=== PATIENT | female | born 1940 | race Caucasian/White ===

== ENCOUNTER 2024-12-27 14:08 | Outpatient (AMB) | payer MEDICARE, MEDICAID, SELFPAY ==
--- NOTE | 2024-12-27 14:26 | MHC.PC.OV ---
Vital Signs 12/27/24 14:33 Height 4 ft 10.66 in Weight 123 lb BMI 25.1 BP 174/74 H Respiration 14 Pulse 68 Pulse Source Pulse Oximeter Temp 97.8 F Temp Source Temporal Artery Scan Pulse Oximetry (%) 97 Oxygen Delivery Method Room Air Intake Visit Reasons: Est care A1c Mailroom Personnel Required: No Accompanied by: [facility] Allergies sulfamethoxazole (From Bactrim) Allergy (Mild, Verified 12/27/24 15:08) Vomiting trimethoprim (From Bactrim) Allergy (Mild, Verified 12/27/24 15:08) Vomiting Medication List - Last Reconciled 12/27/24 by Fredy Borjas MD atorvastatin 80 mg PO DAILY glipizide 10 mg PO BID hydrochlorothiazide 25 mg PO DAILY losartan 100 mg PO DAILY metformin 1,000 mg PO BID pioglitazone 30 mg PO DAILY Tobacco use date assessed: 12/27/24 Fall risk assessment: No Falls in past year Last assessed Fall Risk: 12/27/24 Dental Screening Dental Screen Date: 12/27/24 Did you have a dental visit in the last 12 months?: No Did you have a dental problem in the last 6 months where you did not have access to dental care?: No Was dental information given to patient?: Patient has dentist (patient has dentures) HPI Est care A1c HPI Details Transferring care from Dr Ross. [facility] Medical History (Updated 12/27/24 @ 15:09 by Fredy Borjas MD) Diabetes mellitus Social History (Updated 12/27/24 @ 14:40 by RADHA Webster) Housing: Apartment Alcohol intake: current Alcohol intake frequency: does not drink Patient Tobacco Use Status: Former Tobacco user service: No Current occupational status: retired Cognitive needs: Yes (cane ) Hearing needs: No Vision needs: Yes (rx glasses) Questionnaire PHQ-9 Over the last 2 weeks, how often have you been bothered by any of the following problems? 1. Little interest or pleasure in doing things: not at all 2. Feeling down, depressed, or hopeless: not at all 3. Trouble falling or staying asleep, or sleeping too much: not at all 4. Feeling tired or having little energy: not at all 5. Poor appetite or overeating: not at all 6. Feeling bad about yourself - or that you are a failure or have let yourself or your family down: not at all 7. Trouble concentrating on things, such as reading the newspaper or watching television: not at all 8. Moving or speaking so slowly that other people could have noticed. Or the opposite - being so fidgety or restless that you have been moving around a lot more than usual: not at all 9. Thoughts that you would be better off or of hurting yourself in some way: not at all Total score: 0 Depression Screening Interpretation: Negative Depression Screening Done: Yes Source: Developed by Drs. Kevin Lyle, Yoselin Rhodes, Edison Burns and colleagues, with an educational yandel from [employer]. Thrive Questionnaire Date Thrive assessed: 12/27/24 I am a: Patient What is your living situation today?: I have a steady place to live Within the past 12 months, did the food you bought not last and you didn't have the money to get more?: Never true Within the past 12 months, did you worry whether your food would run out before you got money to buy more?: Never true Do you have trouble paying for medicines?: No Do you have trouble getting transportation to medical appointments?: No Do you have trouble paying your heating and electricity bill?: No Do you have trouble taking care of your child, family member or friend?: No Do you have trouble with day-to-day activities such as bathing, preparing meals, shopping, managing finances, etc.?: No Are you currently unemployed and looking for a job?: No Are you interested in more education?: No Please select the resources that you would like help with: None THRIVE Score: 0 AUDIT C Alcohol Use Questionnaire (AUDIT-C) 1. How often do you have a drink containing alcohol?: Never 3. How often do you have six or more drinks on one occasion?: Never Total Score: 0 MARICRUZ-7 AMB Questionnaire MARICRUZ-7 Date MARICRUZ - 7 assessed: 12/27/24 Feeling nervous, anxious, or on edge: 0 = Not at all Not being able to stop or control worryin = Not at all Worrying too much about different things: 0 = Not at all Trouble relaxin = Not at all Being so restless that it is hard to sit still: 0 = Not at all Becoming easily annoyed or irritable: 0 = Not at all Feeling afraid as if something awful might happen: 0 = Not at all Total MARICRUZ-7 score (0-4 normal; 5-9 mild; 10-14 moderate; 15-21 severe): 0 Source: Developed by Drs. Kevin Lyle, Yoselin Rhodes, Edison Burns and colleagues, with an educational yandel from [employer]. Physical exam (Primary Care) Vital Signs: Last Vital Signs Temp 97.8 F 12/27/24 14:33 Pulse 68 12/27/24 14:33 Resp 14 12/27/24 14:33 BP 174/74 H 12/27/24 14:33 Pulse Ox 97 12/27/24 14:33 Oxygen Delivery Method Room Air 12/27/24 14:33 BMI result Body Mass Index 25.1 Tobacco/Smoking Status: Tobacco use Status Tobacco use date assessed 12/27/24 12/27/24 14:30 Patient Tobacco Use Status Former Tobacco user 12/27/24 14:41 PHQ-9: PHQ-9 Score PHQ-9: Total score 0 12/27/24 14:54 Depression Screening Interpretation: Negative Thrive Assessment: Date of Thrive Assessment Date Thrive assessed 12/27/24 12/27/24 14:30 Results AMB Hemoglobin A1c AMB Hemoglobin A1c 5.8 % Last Edit by RADHA Webster on 12/27/24 14:54 Results Reviewed Results Reviewed: Laboratory Last Values Hgb A1c (Clinic) 5.8 % (4.0-6.0) 12/27/24 14:48 Coding Level of Care Code New Pt Level 4 (92990) Complex EM visit Add On G2211 Diagnoses Diabetes mellitus E11.9 Assessment & Plan Assessment & Plan (1) Diabetes mellitus: Code(s): E11.9 - Type 2 diabetes mellitus without complications Category: Medical Plan: History of Present Illness - The patient is an 84-year-old female presenting with a routine check-up and management of chronic conditions. - Diabetes Mellitus: The patient has a history of diabetes mellitus with a recent A1c of 5.6, indicating good glycemic control. - Thyroid Nodule: The patient has a history of a thyroid nodule, with records reviewed by the physician. - Preventative care: Routine blood work was discussed as part of the preventative care measures. Social History - Housing: The patient lives independently in an apartment complex with individual apartments. - Family Support: The patient receives assistance from her granddaughter, who helps with grocery shopping and transportation. - Substance Use: The patient quit smoking cigarettes 25 years ago and does not consume alcohol. - Functional Status: The patient is able to perform daily activities independently, including cooking and laundry. Review of Systems - Endocrine: Denies any new concerns related to diabetes or thyroid issues. - Neurological: Denies any issues with vision or hearing, reports good vision and hearing. - Respiratory: Denies any breathing difficulties. Physical Exam General: Cooperative and healthy appearing Nutritional Appearance: Well nourished Orientation/consciousness: Patient oriented x3 Limitations: No limitations Head: Normal to inspection General: Appearance normal, both eyes and all related structures Neck: Normal visual inspection Chest: Normal palpation of entire chest wall Respiratory: So far, so good ormal respiratory effort Neurology: Patient oriented x3 Results Plan 1. Diabetes Mellitus - Plan to continue monitoring blood glucose levels and maintain current management as A1c is well-controlled at 5.6. 2. Thyroid Nodule - Continue monitoring thyroid nodule with periodic evaluations as per previous records. 3. Preventative Care - Routine blood work to be conducted at the patient's convenience, with fasting required. Discussion Notes I discussed with the patient the importance of routine monitoring of her diabetes and thyroid nodule. We agreed on conducting routine blood work at her convenience, ensuring she fasts beforehand. I confirmed that her current management plan for diabetes is effective given her A1c level. We also talked about her living situation and the support she receives from her granddaughter, which contributes positively to her independence. Patient Instructions - Continue current diabetes management and monitor blood glucose levels regularly. - Schedule routine blood work at a convenient time, ensuring to fast before the test. - Maintain regular follow-ups every six months for ongoing health management. Orders: Orders AMB Hemoglobin A1c Today E11.9 - Type 2 diabetes mellitus without complications Medications: New glipizide 10 mg PO BID 180 tabs 1RF losartan 100 mg PO DAILY 90 tabs 1RF metformin 1,000 mg PO BID 180 tabs 1RF pioglitazone 30 mg PO DAILY 90 tabs 1RF atorvastatin 80 mg PO DAILY 90 tabs 1RF hydrochlorothiazide 25 mg PO DAILY 90 tabs 1RF
[2024-12-27 14:33] VITALS: BP 174/74; PULSE 68; RESP 14; TEMP 36.6; O2SAT 97; BMI 25.1
== END 2024-12-27 15:07 | disposition home or self-care (01) ==
LOC: HO.HMCSH 14:08
PROVIDERS: PCP Physician Assistant Medical; Visit Provider Internal Medicine
DX: E11.9 Type 2 diabetes mellitus without complications (principal)

== ENCOUNTER → 2024-12-27 14:08 | Outpatient (BNVA) | payer MEDICARE, MEDICAID, SELFPAY | PROVIDERS: PCP Physician Assistant Medical; Visit Provider Internal Medicine | DX: E11.9 Type 2 diabetes mellitus without complications (principal) | CPT/HCPCS: 83036; 99202 ==

== ENCOUNTER 2025-04-18 11:11 | Outpatient (AMB) | payer MEDICARE, MEDICAID, SELFPAY ==
[2025-04-18 11:12] VITALS: BP 146/80; PULSE 64; RESP 16; TEMP 36.4; O2SAT 96; BMI 27.6
--- NOTE | 2025-04-18 11:12 | A.OFFPC_ITS ---
Vital Signs 04/18/25 11:12 Height 4 ft 10.66 in Weight 135 lb BMI 27.6 BP 146/80 H Blood Pressure Location Lt brachial Position Sitting Respiration 16 Pulse 64 Pulse Source Pulse Oximeter Temp 97.6 F Temp Source Temporal Artery Scan Pulse Oximetry (%) 96 Oxygen Delivery Method Room Air Intake Visit Reasons: A1C check Plastic Sewer Required: No Allergies sulfamethoxazole (From Bactrim) Allergy (Mild, Verified 04/18/25 11:13) Vomiting trimethoprim (From Bactrim) Allergy (Mild, Verified 04/18/25 11:13) Vomiting Tobacco use date assessed: 12/27/24 Dental Screening Dental Screen Date: 12/27/24 HPI HPI Comments History of Present Illness Details History of Present Illness - The patient is an 85-year-old individu al presenting for a follow-up visit for chronic condition management. - The patient was last seen in December an d has a history of diabetes, with a prior A1c of 5.6, and a thyroid nodule. - The patient reports feeling fine and d enies any new health concerns or pain. - The patient quit smoking 25 years ago. - Medication regimen includes atorvastat in, glipizide twice daily, hydrochlorothiazide once daily, losartan, metformin twice daily, and pioglitazone once daily. - The patient received both influenza an d COVID-19 vaccinations at [facility]. Social History - Tobacco Use: The patient is a former s moker, having quit 25 years ago. - Living Situation: The patient lives in dependently in an apartment. - Functional Status: The patient manages daily activities such as laundry and cleaning the apartment. - Activities: Spends time watching [employer]. - Social Support: The patient's crow ferrara assists with grocery shopping. - Nutrition: The patient cooks for self. Results - Labs: HgbA1c was 5.6% as of last visit in December. PENDING SALE TO [facility] Medical History Diabetes mellitus Social History Housing: Apartment Alcohol intake: current Alcohol intake frequency: does not drink Patient Tobacco Use Status: Former Tobacco user service: No Current occupational status: retired Cognitive needs: Yes (cane ) Hearing needs: No Vision needs: Yes (rx glasses) Questionnaire PHQ-9 Over the last 2 weeks, how often have you been bothered by any of the following problems? 1. Little interest or pleasure in doing things: not at all 2. Feeling down, depressed, or hopeless: not at all 3. Trouble falling or staying asleep, or sleeping too much: not at all 4. Feeling tired or having little energy: not at all 5. Poor appetite or overeating: not at all 6. Feeling bad about yourself - or that you are a failure or have let yourself or your family down: not at all 7. Trouble concentrating on things, such as reading the newspaper or watching television: not at all 8. Moving or speaking so slowly that other people could have noticed. Or the opposite - being so fidgety or restless that you have been moving around a lot more than usual: not at all 9. Thoughts that you would be better off or of hurting yourself in some way: not at all Total score: 0 Depression Screening Interpretation: Negative Depression Screening Done: Yes Source: Developed by Drs. Kevin Lyle, Yoselin Rhodes, Edison Burns and colleagues, with an educational yandel from [employer]. Thrive Questionnaire Date Thrive assessed: 12/27/24 I am a: Patient What is your living situation today?: I have a steady place to live Within the past 12 months, did the food you bought not last and you didn't have the money to get more?: Never true Within the past 12 months, did you worry whether your food would run out before you got money to buy more?: Never true Do you have trouble paying for medicines?: No Do you have trouble getting transportation to medical appointments?: No Do you have trouble paying your heating and electricity bill?: No Do you have trouble taking care of your child, family member or friend?: No Do you have trouble with day-to-day activities such as bathing, preparing meals, shopping, managing finances, etc.?: No Are you currently unemployed and looking for a job?: No Are you interested in more education?: No Please select the resources that you would like help with: None THRIVE Score: 0 AUDIT C Alcohol Use Questionnaire (AUDIT-C) 1. How often do you have a drink containing alcohol?: Never 3. How often do you have six or more drinks on one occasion?: Never Total Score: 0 MARICRUZ-7 AMB Questionnaire MARICRUZ-7 Date MARICRUZ - 7 assessed: 12/27/24 Feeling nervous, anxious, or on edge: 0 = Not at all Not being able to stop or control worryin = Not at all Worrying too much about different things: 0 = Not at all Trouble relaxin = Not at all Being so restless that it is hard to sit still: 0 = Not at all Becoming easily annoyed or irritable: 0 = Not at all Feeling afraid as if something awful might happen: 0 = Not at all Total MARICRUZ-7 score (0-4 normal; 5-9 mild; 10-14 moderate; 15-21 severe): 0 Source: Developed by Drs. Kevin Lyle, Yoselin Rhodes, Edison Burns and colleagues, with an educational yandel from [employer]. Review of Systems Narrative Review of Systems - General: Denies any new health concerns. - Musculoskeletal: Denies any pain. Physical exam (Primary Care) Vital Signs: Last Vital Signs Temp 97.6 F 04/18/25 11:12 Pulse 64 04/18/25 11:12 Resp 16 04/18/25 11:12 BP 146/80 H 04/18/25 11:12 Pulse Ox 96 04/18/25 11:12 Oxygen Delivery Method Room Air 04/18/25 11:12 BMI result Body Mass Index 27.6 Tobacco/Smoking Status: Tobacco use Status Tobacco use date assessed 12/27/24 04/18/25 11:13 Patient Tobacco Use Status Former Tobacco user 04/18/25 11:13 PHQ-9: PHQ-9 Score PHQ-9: Total score 0 04/18/25 11:26 Depression Screening Interpretation: Negative Thrive Assessment: Date of Thrive Assessment Date Thrive assessed 12/27/24 04/18/25 11:13 Narrative Physical Exam General: Cooperative and healthy appearing Nutritional Appearance: Well nourished Orientation/consciousness: Patient oriented x3 Limitations: No limitations Head: Normal to inspection General: Appearance normal, both eyes and all related structures Neck: Normal visual inspection Chest: Normal palpation of entire chest wall Respiratory: Normal respiratory effort Neurology: Patient oriented x3 Office Procedures Flu Questionnaire Does the patient have a severe egg allergy?: No Does the patient have severe life threatening allergies?: No Does the patient have a fever or illness today?: No Has the patient ever had Guillain-[place] Syndrome?: No Has the patient ever had any past reaction to a flu shot?: No Results AMB Hemoglobin A1c AMB Hemoglobin A1c 6.6 % Last Edit by RADHA Webster on 04/18/25 11:27 Immunizations Fluarix [id number] (PF) 45 mcg (15 mcg x 3)/0.5 mL IM syringe Performing Provider: Fredy Borjas MD [facility] Documented (not given) by: RADHA Webster on 04/18/25 11:26 Reason Not Given: Received Previously Results Reviewed Results Reviewed: Laboratory Last Values Hgb A1c (Clinic) 6.6 % (4.0-6.0) H 04/18/25 11:26 Coding Level of Care Code Complex visit Add On G2211 Diagnoses Diabetes mellitus E11.9 Assessment & Plan Assessment & Plan (1) Diabetes mellitus: Code(s): E11.9 - Type 2 diabetes mellitus without complications Category: Medical Plan Plan - Diabetes Mellitus: Per prior results, A1c is well-controlled. Will continue current medications including glipizide, metformin, and pioglitazone at the same dosages. - Hypertension/Hyperlipidemia: Continue atorvastatin, hydrochlorothiazide, and losartan. - Health Maintenance: Will order fasting blood work and a urinalysis. - Medications: No refills are needed at this time. The patient will call the pharmacy when refills are required. - Follow-up: Schedule a follow-up appointment in six months for ongoing management. The patient may return sooner if any issues arise. Discussion Notes I have reviewed the patient's medication list, which includes atorvastatin, glipizide, hydrochlorothiazide, losartan, metformin, and pioglitazone. Based on the good A1c result from the previous visit, I advised the patient to continue all medications at their current dosages. I have placed orders for new fasting blood work and a urine test, which can be completed at the lab as a walk-in. We agreed on a follow-up visit in six months, with the understanding that the patient can come in sooner if needed. The patient and the patient's granddaughter confirmed that they have no further questions. Patient Instructions - Continue taking all your current medications as prescribed. These include atorvastatin, glipizide, hydrochlorothiazide, losartan, metformin, and pioglitazone. - When you need medication refills, please call either our office or your pharmacy. - Please go to the lab for blood work and a urine test. You should not eat anything after midnight the night before your test, but you can drink water or black coffee in the morning. You can eat your breakfast after the test is done. - We have scheduled your next appointment for six months from now. If you have any concerns before then, please do not hesitate to contact us. Orders: Orders AMB Hemoglobin A1c Today E11.9 - Type 2 diabetes mellitus without complications Basic Metabolic Panel Today E11.9 - Type 2 diabetes mellitus without complications Complete Blood Count no Diff Today E11.9 - Type 2 diabetes mellitus without complications Lipid Panel Today E11.9 - Type 2 diabetes mellitus without complications Liver Panel Today E11.9 - Type 2 diabetes mellitus without complications Thyroid Stimulating Hormone Today E11.9 - Type 2 diabetes mellitus without complications UA and rflx microscopic Today E11.9 - Type 2 diabetes mellitus without complications Microalbumin, Random (w Creat) Today E11.9 - Type 2 diabetes mellitus without complications Influenza [id number] Immunization Today Z23 - Encounter for immunization AMB Hemoglobin A1c Today E11.9 - Type 2 diabetes mellitus without complications
== END 2025-04-18 11:36 | disposition home or self-care (01) ==
LOC: HO.HMCSH 11:11
PROVIDERS: PCP Physician Assistant Medical; Visit Provider Internal Medicine
DX: E11.9 Type 2 diabetes mellitus without complications (principal); Z23 Encounter for immunization

== ENCOUNTER → 2025-04-18 11:11 | Outpatient (BNVA) | payer MEDICARE, MEDICAID, SELFPAY | PROVIDERS: PCP Physician Assistant Medical; Visit Provider Internal Medicine | DX: E11.9 Type 2 diabetes mellitus without complications (principal); Z13.31 Encounter for screening for depression | CPT/HCPCS: 83036; 90471; 96127; 99212 ==

== ENCOUNTER 2025-05-02 09:43 | Outpatient (REF) | payer MEDICARE, MEDICAID, SELFPAY ==
[2025-05-02 14:00] LABS: Hematocrit 44.3 % (37.0-47.0); Hemoglobin 14.2 g/dl (12.0-16.0); Mean Corpuscular HGB Conc 32.1 g/dl (31.0-35.0); Mean Corpuscular Hemoglobin 28.2 pg (27.0-33.0); Mean Corpuscular Volume 88.1 fL (80.0-98.0); NRBC Abs Auto 0.000 X10*3/uL (0.0-0.012); NRBC Pct Auto 0.0 /100WBC (0.0-0.2); Platelet Count 315 X10*3/uL (160-400); Red Blood Count 5.03 X10*6/uL (4.20-5.50); White Blood Count 8.8 X10*3/uL (4.8-10.8)
[2025-05-02 15:14] LABS: Alanine Aminotransferase 16 U/L (0-31); Albumin Level 4.3 g/dL (3.5-5.0); Alkaline Phosphatase 109 U/L (39-117); Anion Gap 9 (12-20); Aspartate Amino Transferase 36 U/L (5-31); Blood Urea Nitrogen 25 mg/dL (9-16); Calcium 10.2 mg/dL (8.4-10.2); Carbon Dioxide 30 mmol/L (22-29); Chloride 107 mmol/L (96-108); Cholesterol 195 mg/dL (<200); Estimated Glomerular Filt Rate 49; HDL Cholesterol 60 mg/dL (>40); Potassium 4.4 mmol/L (3.3-5.1); Sodium 142 mmol/L (135-145); Thyroid Stimulating Hormone 0.65 uIU/mL (0.32-4.0); Total Protein 7.5 g/dL (6.5-8.0)
[2025-05-02 15:33] LABS: Triglycerides 140 mg/dL (<150)
== END 2025-05-02 09:44 | disposition home or self-care (01) ==
LOC: HO.HMGCLDS 09:43
PROVIDERS: PCP Internal Medicine; Visit Provider Internal Medicine
DX: E11.9 Type 2 diabetes mellitus without complications (principal)
CPT/HCPCS: 36415; 80048; 80061; 80076; 84443; 85027